=== PATIENT | female | born 1935 | race Caucasian/White ===

== ENCOUNTER → 2016-07-07 | Outpatient (REF) | payer MEDICARE, MEDICAID ==
[~2016-07-07] MED LIST: ACET65SU PR; ADV250INH INH; AMLO5TAB2 PO; ASPI1TAB PO; ATIV1TAB10 PO; ATOR1TAB21 PO; BACT400T PO; BENZ100C5 PO; CLOP75TA2 PO; DULC10SU2 PR; ENEMENE6 PR; EXEM25TA PO; FENOFIBRATE PO; FLUO40CA57 PO; FURO40TA2 PO; IPRASOL4 INH; LASI40TA PO; LEVA1.25 INH; LISI-538 PO; LORA10TA2 PO; MILKSUS PO; MOTR200T40 PO; MUCI600T34 PO; MULTTAB63 PO; MYLASSUD PO; NEXIUM PO; NYST100024 TOP; PANT40TA2 PO; PROA1AER INH; PROT1TAB2 PO; Q PA PO; SENO8.6T10 PO; SIMV40TA2 PO; SYMB16INH INH; VITA50003 PO; ZOCO20TA PO
[2016-07-07 10:39] LABS: CALCIUM LEVEL 10.9 MG/DL (8.8-10.2); CREATININE FOR GFR 1.8 MG/DL (0.55-1.02); GLOMERULAR FILTRATION RATE 28.7 (>32)
[2016-07-07 10:40] LABS: POTASSIUM SERUM 5.7 MEQ/L (3.5-5.1)
== END | disposition home or self-care (01) ==
LOC: SKLAB2 08:00
PROVIDERS: ATTEND Family Medicine
DX: E03.9 Hypothyroidism, unspecified (principal)

== ENCOUNTER → 2016-08-11 | Outpatient (REF) | payer MEDICARE, MEDICAID ==
[~2016-08-11] MED LIST changes: +FLUO40CA PO; -FLUO40CA57 PO; -MOTR200T40 PO; +MOTR200T44 PO
[2016-08-11 08:10] LABS: CALCIUM LEVEL 10.2 MG/DL (8.8-10.2); CREATININE FOR GFR 1.77 MG/DL (0.55-1.02); GLOMERULAR FILTRATION RATE 29.2 (>32); POTASSIUM SERUM 5.1 MEQ/L (3.5-5.1)
== END | disposition home or self-care (01) ==
LOC: SKLAB2 07:00
PROVIDERS: ATTEND Family Medicine
DX: E03.9 Hypothyroidism, unspecified (principal); E78.5 Hyperlipidemia, unspecified

== ENCOUNTER → 2016-09-08 | Outpatient (REF) | payer MEDICARE, MEDICAID ==
[2016-09-08 08:55] LABS: CALCIUM LEVEL 10.3 MG/DL (8.8-10.2); CREATININE FOR GFR 1.77 MG/DL (0.55-1.02); GLOMERULAR FILTRATION RATE 29.2 (>32); POTASSIUM SERUM 4.9 MEQ/L (3.5-5.1)
== END ==
LOC: SKLAB2 07:30
PROVIDERS: ATTEND Family Medicine
DX: E03.9 Hypothyroidism, unspecified (principal)

== ENCOUNTER → 2016-10-06 | Outpatient (REF) | payer MEDICARE, MEDICAID ==
[2016-10-06 09:30] LABS: CALCIUM LEVEL 10.2 MG/DL (8.8-10.2); CREATININE FOR GFR 1.95 MG/DL (0.55-1.02); GLOMERULAR FILTRATION RATE 26.1 (>32); POTASSIUM SERUM 4.8 MEQ/L (3.5-5.1)
== END ==
LOC: SKLAB2 07:00
PROVIDERS: ATTEND Family Medicine
DX: E03.9 Hypothyroidism, unspecified (principal)

== ENCOUNTER → 2016-11-03 | Outpatient (REF) | payer MEDICARE, MEDICAID ==
[2016-11-03 08:55] LABS: CALCIUM LEVEL 10.2 MG/DL (8.8-10.2); CREATININE FOR GFR 1.74 MG/DL (0.55-1.02); GLOMERULAR FILTRATION RATE 29.8 (>32); POTASSIUM SERUM 4.8 MEQ/L (3.5-5.1)
== END ==
LOC: SKLAB2 07:00
PROVIDERS: ATTEND Family Medicine
DX: E78.5 Hyperlipidemia, unspecified (principal)

== ENCOUNTER → 2016-12-08 | Outpatient (REF) | payer MEDICARE, MEDICAID ==
[2016-12-08 08:52] LABS: CALCIUM LEVEL 10.7 MG/DL (8.8-10.2); CREATININE FOR GFR 1.81 MG/DL (0.55-1.02); GLOMERULAR FILTRATION RATE 28.4 (>32)
[2016-12-08 09:01] LABS: POTASSIUM SERUM 5.2 MEQ/L (3.5-5.1)
== END ==
LOC: SKLAB2 07:00
PROVIDERS: ATTEND Family Medicine
DX: E03.9 Hypothyroidism, unspecified (principal)

== ENCOUNTER → 2016-12-23 | Outpatient (REF) | payer MEDICARE, MEDICAID ==
[~2016-12-23] MED LIST changes: +LEXA1TAB2 PO; -MUCI600T34 PO; +MUCI600T37 PO; -NYST100024 TOP; +NYST1POW9 TOP; -PROA1AER INH; +PROAAER10 INH; +VITA1CAP40 PO; -VITA50003 PO
--- NOTE | 2016-12-23 16:13 | REP ---
Clinical: Chest pain. Shortness of breath. Congestion. Comparison: 01/07/2016. Findings: The cardiac silhouette is stable. Hiatal hernia is suggested. Lung dent demonstrate increased interstitial markings which may reflect chronic changes as well as interstitial edema. Left lower lobe atelectasis as well as small layering effusion cannot definitively be excluded. No pneumothorax. Skeletal structures demonstrate osteopenia and degenerative changes. Impression: Acute versus chronic increased interstitial markings. Differential diagnosis includes interstitial edema as well as left lower lobe atelectasis and small layering effusion. Signed by Bonifacio Mendez MD 12/23/2016 04:04 P
== END ==
LOC: SKLAB2 14:59
PROVIDERS: ATTEND Family Medicine
DX: R09.89 Other specified symptoms and signs involving the circulatory and respiratory systems (principal); R91.8 Other nonspecific abnormal finding of lung field; J98.4 Other disorders of lung

== ENCOUNTER → 2016-12-24 | Outpatient (REF) | payer MEDICARE, MEDICAID ==
--- NOTE | 2016-12-24 08:52 | REP ---
Clinical: Congestion. Comparison: 12/23/2016. Findings: Mediastinum and cardiac silhouette are stable. Moderate to large hiatal hernia again noted. Lung dent demonstrate stable chronic interstitial changes. Superimposed interstitial edema as well as trace left basilar atelectasis cannot be excluded. No definite effusion. No pneumothorax. Skeletal structures stable. Impression: Chronic stable changes as described above. Cannot exclude mild interstitial edema. Signed by Bonifacio Mendez MD 12/24/2016 08:44 A
== END ==
LOC: SKLAB2 07:21
PROVIDERS: ATTEND Family Medicine
DX: J98.4 Other disorders of lung (principal); R91.8 Other nonspecific abnormal finding of lung field

== ENCOUNTER → 2017-01-05 | Outpatient (REF) ==
[2017-01-05 10:19] LABS: CALCIUM LEVEL 10.9 MG/DL (8.8-10.2); CREATININE FOR GFR 1.82 MG/DL (0.55-1.02); GLOMERULAR FILTRATION RATE 28.2 (>32)
[2017-01-05 10:22] LABS: POTASSIUM SERUM 5.2 MEQ/L (3.5-5.1)
== END ==
LOC: SKLAB2 08:00
PROVIDERS: ATTEND Family Medicine
DX: E03.9 Hypothyroidism, unspecified (principal)

== ENCOUNTER → 2017-02-09 | Outpatient (REF) | payer MEDICARE, MEDICAID ==
[2017-02-09 10:01] LABS: CALCIUM LEVEL 10.4 MG/DL (8.8-10.2); CREATININE FOR GFR 1.83 MG/DL (0.55-1.02); GLOMERULAR FILTRATION RATE 28.1 (>32)
== END ==
LOC: SKLAB2 07:00
PROVIDERS: ATTEND Family Medicine
DX: E78.5 Hyperlipidemia, unspecified (principal)

== ENCOUNTER → 2017-03-09 | Outpatient (REF) | payer MEDICARE, MEDICAID ==
[2017-03-09 09:00] LABS: CALCIUM LEVEL 10.7 MG/DL (8.8-10.2); CREATININE FOR GFR 1.57 MG/DL (0.55-1.02); GLOMERULAR FILTRATION RATE 33.5 (>32)
== END ==
LOC: SKLAB2 07:30
PROVIDERS: ATTEND Family Medicine
DX: E03.9 Hypothyroidism, unspecified (principal)

== ENCOUNTER 2017-03-23 17:12 | Emergency (ER) | payer MEDICARE, MEDICAID ==
[~2017-03-23] VITALS: Ht 170.2 cm; Wt 98.2 kg
[~2017-03-23 17:12] MED LIST changes: -LEXA1TAB2 PO
[2017-03-23] MEDS ORDERED: MORPHINE 4 MG/ML 1ML SYRINGE IV PRN (17:30)
[2017-03-23] MEDS ORDERED: ONDANSETRON 4MG/2ML VIAL (J2405) IV ONE (17:30)
[2017-03-23 17:56] LABS: MEAN CORPUSCULAR HEMOGLOBIN 27.6 pg (27.0-33.0); MEAN CORPUSCULAR HGB CONC 31.4 g/dl (32.0-36.5); MEAN CORPUSCULAR VOLUME 87.8 fl (80.0-96.0); RED CELL DISTRIBUTION WIDTH 15.8 % (11.5-14.5); WHITE BLOOD COUNT 11.8 10^3/uL (4.0-10.0)
[2017-03-23 18:06] LABS: INR 0.92
--- NOTE | 2017-03-23 18:12 | REP ---
CT Head without contrast HISTORY: Fall COMPARISON: 02/24/2016 Areas of decreased attenuation are present in the left frontal temporal and parietal lobes. There is dilatation of the overlying cortical sulci. These represent old infarctions. Areas of decreased attenuation are present in the periventricular and subcortical white matter. This represents small-vessel ischemic disease. There is no intraparenchymal hemorrhage mass or midline shift. The ventricular system and cortical sulci as well as subarachnoid space in the posterior fossa are dilated consistent with mild volume loss. There is no extra cerebral collection. There is no fracture. The visualized sinuses are clear. IMPRESSION: 1. 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 2. Small vessel ischemic disease. 3. Mild volume loss. Signed by Prateek Kasper MD 03/23/2017 06:03 P
[2017-03-23 18:17] LABS: ALBUMIN 3.3 GM/DL (3.2-5.2); ALBUMIN/GLOBULIN RATIO 0.97 (1.00-1.93); ALKALINE PHOSPHATASE 77 U/L (45-117); ALT/SGPT 20 U/L (12-78); ANION GAP 10 MEQ/L (8-16); AST/SGOT 9 U/L (15-37); BILIRUBIN,DIRECT < 0.1 MG/DL (0.0-0.2); BILIRUBIN,TOTAL 0.2 MG/DL (0.2-1.0); BLOOD UREA NITROGEN 47 MG/DL (7-18); CALCIUM LEVEL 9.6 MG/DL (8.8-10.2); CARBON DIOXIDE LEVEL 20 MEQ/L (21-32); CHLORIDE LEVEL 110 MEQ/L (98-107); CREATININE FOR GFR 1.64 MG/DL (0.55-1.02); GLOMERULAR FILTRATION RATE 31.9 (>32); GLUCOSE, FASTING 102 MG/DL (83-110); POTASSIUM SERUM 5.1 MEQ/L (3.5-5.1); SODIUM LEVEL 140 MEQ/L (136-145); TOTAL PROTEIN 6.7 GM/DL (6.4-8.2)
[2017-03-23] MEDS ORDERED: ADV250INH INH (18:18)
[2017-03-23] MEDS ORDERED: LEXA1TAB2 PO (18:18)
--- NOTE | 2017-03-23 18:18 | ECGEPIP ---
Stationary ECG Study [facility] - ED Test Date: 2017-03-23 Pat Name: DAVID VILA Department: Room: - Gender: F Clinical Implementation Specialist: tosin : 1935 Requested By: MAGDI MEADOWS Order Number: [id number] Reading MD: Colin Whalen Measurements Intervals [place] Rate: 70 P: -63 CO: 176 QRS: -24 QRSD: 74 T: 51 QT: 368 QTc: 399 Interpretive Statements SINUS RHYTHM WITH FIRST DEGREE AV BLOCK Electronically Signed On 03-23-2017 18:18:17 EDT by Colin Whalen
--- NOTE | 2017-03-23 18:58 | REP ---
Chest one-view HISTORY: Fall Comparison: 12/24/2016 A minimal increase in interstitial markings is present in the lungs consistent with chronic interstitial change. Increased density is present in the left lower lobe consistent with atelectasis or infiltrate. The cardiac silhouette is enlarged. The pulmonary vasculature is normal in appearance. A hiatal hernia is present. The pulmonary vasculature is normal in appearance. Impression: 1. Chronic interstitial change. 2. Left lower lobe atelectasis or infiltrate. 3. Cardiomegaly. 4. Hiatal hernia. Signed by Prateek Kasper MD 03/23/2017 06:50 P
[2017-03-23 19:02] VITALS: BP 132/63
--- NOTE | 2017-03-24 09:19 | ED PDOC ---
Post-Departure Follow-Up radiology report faxed to Pennie Carl MD Mar 24, 2017 09:19
--- NOTE | 2017-03-24 09:24 | REP ---
LEFT HIP, AP PELVIS, THREE VIEWS: HISTORY: Fall. There is no acute fracture or dislocation. There is narrowing of the joint spaces. The bony structure is osteopenic. IMPRESSION: There is no acute fracture or dislocation. Signed by Prateek Kasper MD 03/24/2017 09:33 A
== END 2017-03-23 19:07 | disposition home or self-care (01) ==
LOC: EDBD 17:12 → M ED 17:12
DX: S70.01XA Contusion of right hip, initial encounter (principal); W19.XXXA Unspecified fall, initial encounter; Y92.129 Unspecified place in nursing home as the place of occurrence of the external cause; Y93.89 Activity, other specified; Y99.8 Other external cause status; J44.9 Chronic obstructive pulmonary disease, unspecified; E11.9 Type 2 diabetes mellitus without complications; I51.9 Heart disease, unspecified; C64.9 Malignant neoplasm of unspecified kidney, except renal pelvis; Z79.899 Other long term (current) drug therapy; Z79.51 Long term (current) use of inhaled steroids; Z79.82 Long term (current) use of aspirin; Z88.0 Allergy status to penicillin; Z88.8 Allergy status to other drugs, medicaments and biological substances; Z86.73 Personal history of transient ischemic attack (TIA), and cerebral infarction without residual deficits
CPT/HCPCS: 70450; 71010; 73502; 80048; 80076; 85027; 85610; 93005; 96374; 96375; 99284; J2405

== ENCOUNTER → 2017-03-26 | Outpatient (REF) | payer MEDICARE, MEDICAID ==
[~2017-03-26] MED LIST changes: +LEXA1TAB2 PO
--- NOTE | 2017-03-26 15:56 | REP ---
LEFT FEMUR, FOUR VIEWS: HISTORY: Leg pain. There is no acute fracture or dislocation. There is narrowing of the hip and knee joint spaces. The bony structures are osteopenic. IMPRESSION: There is no acute fracture or dislocation. Signed by Prateek Kasper MD 03/26/2017 04:04 P
--- NOTE | 2017-03-26 15:57 | REP ---
PELVIS, ONE VIEWS: HISTORY: Fall. There is no acute fracture or dislocation. There is narrowing of the joint spaces with associated sclerosis. The bony structure is osteopenic. IMPRESSION:There is no acute fracture or dislocation. Signed by Prateek Kasper MD 03/26/2017 04:04 P
== END ==
LOC: SKLAB2 14:05
PROVIDERS: ATTEND Family Medicine
DX: M79.605 Pain in left leg (principal)

== ENCOUNTER → 2017-04-06 | Outpatient (REF) | payer MEDICARE, MEDICAID ==
[2017-04-06 09:48] LABS: CREATININE FOR GFR 1.81 MG/DL (0.55-1.02); GLOMERULAR FILTRATION RATE 28.4 (>32)
[2017-04-06 09:55] LABS: POTASSIUM SERUM 5.6 MEQ/L (3.5-5.1)
== END ==
LOC: SKLAB2 07:30
PROVIDERS: ATTEND Family Medicine
DX: E03.9 Hypothyroidism, unspecified (principal)

== ENCOUNTER → 2017-04-07 | Outpatient (REF) | payer MEDICARE, MEDICAID ==
[2017-04-07 09:56] LABS: CALCIUM LEVEL 11.2 MG/DL (8.8-10.2); CREATININE FOR GFR 2.04 MG/DL (0.55-1.02); GLOMERULAR FILTRATION RATE 24.8 (>32)
[2017-04-07 09:58] LABS: POTASSIUM SERUM 5.6 MEQ/L (3.5-5.1)
== END ==
LOC: SKLAB2 07:30
PROVIDERS: ATTEND Family Medicine
DX: E87.5 Hyperkalemia (principal)

== ENCOUNTER → 2017-04-08 | Outpatient (REF) | payer MEDICARE, MEDICAID ==
[2017-04-08 08:35] LABS: ALBUMIN 3.4 GM/DL (3.2-5.2); CALCIUM LEVEL 11.2 MG/DL (8.8-10.2); CREATININE FOR GFR 1.74 MG/DL (0.55-1.02); GLOMERULAR FILTRATION RATE 29.7 (>32); PHOSPHORUS LEVEL 3.6 MG/DL (2.5-4.9)
[2017-04-08 08:51] LABS: POTASSIUM SERUM 5.2 MEQ/L (3.5-5.1)
== END ==
LOC: SKLAB2 11:36
PROVIDERS: ATTEND Family Medicine
DX: N18.9 Chronic kidney disease, unspecified (principal)

== ENCOUNTER → 2017-04-10 | Outpatient (REF) | payer MEDICARE, MEDICAID ==
[2017-04-10 08:30] LABS: CALCIUM LEVEL 10.7 MG/DL (8.8-10.2); CREATININE FOR GFR 1.59 MG/DL (0.55-1.02)
[2017-04-10 08:32] LABS: POTASSIUM SERUM 5.5 MEQ/L (3.5-5.1)
== END ==
LOC: SKLAB2 07:02
PROVIDERS: ATTEND Family Medicine
DX: N18.9 Chronic kidney disease, unspecified (principal)

== ENCOUNTER → 2017-04-14 | Outpatient (REF) | payer MEDICARE, MEDICAID ==
[2017-04-14 08:46] LABS: CALCIUM LEVEL 10.6 MG/DL (8.8-10.2); CREATININE FOR GFR 1.63 MG/DL (0.55-1.02); GLOMERULAR FILTRATION RATE 32.1 (>32)
== END ==
LOC: SKLAB2 10:22
PROVIDERS: ATTEND Family Medicine
DX: I50.9 Heart failure, unspecified (principal)

== ENCOUNTER → 2017-05-11 | Outpatient (REF) | payer MEDICARE, MEDICAID ==
[2017-05-11 10:13] LABS: CALCIUM LEVEL 10.8 MG/DL (8.8-10.2); CREATININE FOR GFR 1.47 MG/DL (0.55-1.02); GLOMERULAR FILTRATION RATE 36.1 (>32)
== END ==
LOC: SKLAB2 07:30
PROVIDERS: ATTEND Family Medicine
DX: I10 Essential (primary) hypertension (principal)

== ENCOUNTER → 2017-05-18 | Outpatient (REF) | payer MEDICARE, MEDICAID ==
[2017-05-18 13:37] LABS: CALCIUM LEVEL 10.7 MG/DL (8.8-10.2); CREATININE FOR GFR 1.61 MG/DL (0.55-1.02); GLOMERULAR FILTRATION RATE 32.5 (>32); POTASSIUM SERUM 4.9 MEQ/L (3.5-5.1)
== END ==
LOC: SKLAB2 12:00
PROVIDERS: ATTEND Family Medicine
DX: I10 Essential (primary) hypertension (principal)

== ENCOUNTER → 2017-06-08 | Outpatient (REF) | payer MEDICARE, MEDICAID ==
[2017-06-08 09:11] LABS: CREATININE FOR GFR 1.29 MG/DL (0.55-1.02); POTASSIUM SERUM 4.8 MEQ/L (3.5-5.1)
== END ==
LOC: SKLAB2 07:30
PROVIDERS: ATTEND Family Medicine
DX: I10 Essential (primary) hypertension (principal)

== ENCOUNTER → 2017-07-06 | Outpatient (REF) | payer MEDICARE, MEDICAID ==
[2017-07-06 09:04] LABS: ANION GAP 8 MEQ/L (8-16); BLOOD UREA NITROGEN 27 MG/DL (7-18); CALCIUM LEVEL 10.6 MG/DL (8.8-10.2); CARBON DIOXIDE LEVEL 27 MEQ/L (21-32); CHLORIDE LEVEL 110 MEQ/L (98-107); CREATININE FOR GFR 1.26 MG/DL (0.55-1.02); GLOMERULAR FILTRATION RATE 43.2 (>32); GLUCOSE, FASTING 127 MG/DL (83-110); POTASSIUM SERUM 4.7 MEQ/L (3.5-5.1); SODIUM LEVEL 145 MEQ/L (136-145)
== END ==
LOC: SKLAB2 07:30
DX: E03.9 Hypothyroidism, unspecified (principal)
CPT/HCPCS: 36415

== ENCOUNTER → 2017-07-15 | Outpatient (REF) | payer MEDICARE, MEDICAID ==
[2017-07-15 02:02] LABS: APPEARANCE, URINE CLEAR (CLEAR); BACTERIA, URINE AUTO 1+ (NEGATIVE); BILIRUBIN, URINE AUTO NEGATIVE (NEGATIVE); BLOOD, URINE BLOOD 1+ (NEGATIVE); COLOR, URINE STRAW (YELLOW); GLUCOSE, URINE (UA) AUTO NEGATIVE (NEGATIVE); KETONE, URINE AUTO NEGATIVE (NEGATIVE); LEUKOCYTE ESTERASE, URINE AUTO 1+ (NEGATIVE); NITRITE, URINE AUTO NEGATIVE (NEGATIVE); PROTEIN, URINE AUTO NEGATIVE (NEGATIVE); RBC, URINE AUTO 1 /HPF (0-3); SPECIFIC GRAVITY URINE AUTO 1.005 (1.002-1.035); SQUAMOUS EPITHELIAL CELL UR AU 0 /HPF (0-6); UROBILINOGEN, URINE AUTO 0.2 mg/dL (0.0-2.0); WBC, URINE AUTO 6 /HPF (0-3)
== END ==
LOC: SKLAB2 01:33
DX: R30.0 Dysuria (principal)
CPT/HCPCS: 81001

== ENCOUNTER → 2017-08-01 | Outpatient (REF) | payer MEDICARE, MEDICAID | LOC: M RAD 08:00 | DX: M85.80 Other specified disorders of bone density and structure, unspecified site (principal) | CPT/HCPCS: 73630 ==

== ENCOUNTER → 2017-08-10 | Outpatient (REF) | payer MEDICARE, MEDICAID ==
[2017-08-10 09:34] LABS: ANION GAP 8 MEQ/L (8-16); BLOOD UREA NITROGEN 31 MG/DL (7-18); CALCIUM LEVEL 10.9 MG/DL (8.8-10.2); CARBON DIOXIDE LEVEL 28 MEQ/L (21-32); CHLORIDE LEVEL 107 MEQ/L (98-107); CREATININE FOR GFR 1.36 MG/DL (0.55-1.30); GLOMERULAR FILTRATION RATE 39.5 (>32); GLUCOSE, FASTING 134 MG/DL (70-100); POTASSIUM SERUM 4.6 MEQ/L (3.5-5.1); SODIUM LEVEL 143 MEQ/L (136-145)
== END ==
LOC: SKLAB2 07:30
DX: E03.9 Hypothyroidism, unspecified (principal)
CPT/HCPCS: 36415

== ENCOUNTER → 2017-09-07 | Outpatient (REF) | payer MEDICARE, MEDICAID ==
[2017-09-07 08:52] LABS: ANION GAP 9 MEQ/L (8-16); BLOOD UREA NITROGEN 26 MG/DL (7-18); CALCIUM LEVEL 10.6 MG/DL (8.8-10.2); CARBON DIOXIDE LEVEL 26 MEQ/L (21-32); CHLORIDE LEVEL 107 MEQ/L (98-107); GLOMERULAR FILTRATION RATE 41.6 (>32); GLUCOSE, FASTING 172 MG/DL (70-100); POTASSIUM SERUM 4.3 MEQ/L (3.5-5.1); SODIUM LEVEL 142 MEQ/L (136-145)
== END ==
LOC: SKLAB2 07:00
DX: I10 Essential (primary) hypertension (principal)
CPT/HCPCS: 36415

== ENCOUNTER → 2017-12-25 | Outpatient (REF) | payer MEDICARE, MEDICAID ==
[2017-12-25 14:22] LABS: HEMATOCRIT 45.7 % (36.0-47.0); HEMOGLOBIN 14.1 g/dl (12.0-15.5); MEAN CORPUSCULAR HEMOGLOBIN 27.1 pg (27.0-33.0); MEAN CORPUSCULAR HGB CONC 30.9 g/dl (32.0-36.5); MEAN CORPUSCULAR VOLUME 87.7 fl (80.0-96.0); PLATELET COUNT, AUTOMATED 271 10^3/uL (150-450); RED BLOOD COUNT 5.21 10^6/uL (4.00-5.40); RED CELL DISTRIBUTION WIDTH 15.3 % (11.5-14.5)
[2017-12-25 14:39] LABS: ANION GAP 9 MEQ/L (8-16); BLOOD UREA NITROGEN 24 MG/DL (7-18); CALCIUM LEVEL 10.6 MG/DL (8.8-10.2); CARBON DIOXIDE LEVEL 28 MEQ/L (21-32); CHLORIDE LEVEL 106 MEQ/L (98-107); CREATININE FOR GFR 1.24 MG/DL (0.55-1.30); GLOMERULAR FILTRATION RATE 43.9 (>32); GLUCOSE, FASTING 173 MG/DL (70-100); NT-PRO BNP 197 PG/ML (<450); POTASSIUM SERUM 4.2 MEQ/L (3.5-5.1); SODIUM LEVEL 143 MEQ/L (136-145); TROPONIN I < 0.02 NG/ML (< 0.10)
== END ==
LOC: SKLAB2 07:00
DX: R60.9 Edema, unspecified (principal); E87.5 Hyperkalemia; I50.9 Heart failure, unspecified; I63.9 Cerebral infarction, unspecified; N18.3 Chronic kidney disease, stage 3 (moderate); G20 Parkinson's disease; E11.9 Type 2 diabetes mellitus without complications
CPT/HCPCS: 71045

== ENCOUNTER → 2018-01-01 | Outpatient (REF) | payer MEDICARE, MEDICAID ==
[2018-01-01 13:23] LABS: ANION GAP 3 MEQ/L (8-16); BLOOD UREA NITROGEN 32 MG/DL (7-18); CALCIUM LEVEL 11.1 MG/DL (8.8-10.2); CARBON DIOXIDE LEVEL 35 MEQ/L (21-32); CHLORIDE LEVEL 103 MEQ/L (98-107); CREATININE FOR GFR 1.29 MG/DL (0.55-1.30); GLOMERULAR FILTRATION RATE 41.9 (>32); GLUCOSE, FASTING 129 MG/DL (70-100); POTASSIUM SERUM 4.5 MEQ/L (3.5-5.1); SODIUM LEVEL 141 MEQ/L (136-145)
== END ==
LOC: SKLAB2 14:51
DX: R60.9 Edema, unspecified (principal)
CPT/HCPCS: 80048

== ENCOUNTER → 2018-01-04 | Outpatient (REF) | payer MEDICARE, MEDICAID ==
[2018-01-04 08:51] LABS: BASO # 0.1 10^3/uL (0.0-0.2); BASO % 0.5 % (0.0-1.0); EOS # 0.4 10^3/uL (0.0-0.50); EOS % 3.1 % (0.0-3.0); HEMATOCRIT 46.3 % (36.0-47.0); HEMOGLOBIN 14.1 g/dl (12.0-15.5); IMMATURE GRANULOCYTE % 0.3 % (0-3.0); LYMPH # 1.4 10^3/uL (1.5-4.5); LYMPH % 12.1 % (24.0-44.0); MEAN CORPUSCULAR HEMOGLOBIN 27.1 pg (27.0-33.0); MEAN CORPUSCULAR HGB CONC 30.5 g/dl (32.0-36.5); MEAN CORPUSCULAR VOLUME 88.9 fl (80.0-96.0); MONO % 8.9 % (0.0-5.0); NEUTROPHILS # 8.8 10^3/uL (1.8-7.7); NEUTROPHILS % 75.1 % (36.0-66.0); PLATELET COUNT, AUTOMATED 300 10^3/uL (150-450); RED BLOOD COUNT 5.21 10^6/uL (4.00-5.40); RED CELL DISTRIBUTION WIDTH 15.1 % (11.5-14.5); WHITE BLOOD COUNT 11.7 10^3/uL (4.0-10.0)
[2018-01-04 09:28] LABS: ESTIMATED AVERAGE GLUCOSE 166 MG/DL (60-110); HEMOGLOBIN A1c 7.4 %
[2018-01-04 10:24] LABS: ALBUMIN 3.2 GM/DL (3.2-5.2); ANION GAP 10 MEQ/L (8-16); BLOOD UREA NITROGEN 32 MG/DL (7-18); CALCIUM LEVEL 11.3 MG/DL (8.8-10.2); CARBON DIOXIDE LEVEL 28 MEQ/L (21-32); CHLORIDE LEVEL 105 MEQ/L (98-107); CREATININE FOR GFR 1.35 MG/DL (0.55-1.30); GLOMERULAR FILTRATION RATE 39.8 (>32); GLUCOSE, FASTING 149 MG/DL (70-100); PHOSPHORUS LEVEL 3.1 MG/DL (2.5-4.9); POTASSIUM SERUM 4.7 MEQ/L (3.5-5.1); SODIUM LEVEL 143 MEQ/L (136-145)
[2018-01-04 10:57] LABS: PTH INTACT 144.1 PG/ML (18.5-88.0)
== END ==
LOC: SKLAB2 07:15
DX: E03.9 Hypothyroidism, unspecified (principal); Z79.899 Other long term (current) drug therapy
CPT/HCPCS: 80069

== ENCOUNTER → 2018-01-18 | Outpatient (REF) | payer MEDICARE, MEDICAID ==
[2018-01-18 08:45] LABS: CALCIUM LEVEL 10.9 MG/DL (8.8-10.2)
[2018-01-18 09:54] LABS: TOTAL 25(OH) VITAMIN D 56.5 NG/ML (30.0-100.0)
== END ==
LOC: SKLAB2 07:00
DX: E55.9 Vitamin D deficiency, unspecified (principal)
CPT/HCPCS: 82310

== ENCOUNTER → 2018-04-05 | Outpatient (REF) | payer MEDICARE, MEDICAID ==
[2018-04-05 09:18] LABS: ALBUMIN 3.5 GM/DL (3.2-5.2); ANION GAP 11 MEQ/L (8-16); BLOOD UREA NITROGEN 27 MG/DL (7-18); CALCIUM LEVEL 10.8 MG/DL (8.8-10.2); CARBON DIOXIDE LEVEL 29 MEQ/L (21-32); CHLORIDE LEVEL 103 MEQ/L (98-107); CREATININE FOR GFR 1.38 MG/DL (0.55-1.30); GLOMERULAR FILTRATION RATE 38.8 (>32); GLUCOSE, FASTING 166 MG/DL (70-100); PHOSPHORUS LEVEL 3.3 MG/DL (2.5-4.9); POTASSIUM SERUM 4.5 MEQ/L (3.5-5.1); SODIUM LEVEL 143 MEQ/L (136-145)
== END ==
LOC: SKLAB2 07:00
DX: E03.9 Hypothyroidism, unspecified (principal)
CPT/HCPCS: 80069

== ENCOUNTER → 2018-07-12 | Outpatient (REF) | payer MEDICARE, MEDICAID ==
[~2018-07-12] MED LIST changes: -AMLO5TAB2 PO; +AMLO5TAB6 PO; +BENZ-18 PO; -BENZ100C5 PO; +IPRA0.00 INH; -IPRASOL4 INH; -LASI40TA PO; +LASI40TA9 PO; +LORA-243 PO; -LORA10TA2 PO; +MILK120011 PO; -MILKSUS PO; -PANT40TA2 PO; +PANT40TA3 PO; -VITA1CAP40 PO; +VITA50005 PO
[2018-07-12 08:11] LABS: BASO % 0.5 % (0.0-1.0); EOS # 0.3 10^3/uL (0.0-0.50); EOS % 4.1 % (0.0-3.0); HEMATOCRIT 47.1 % (36.0-47.0); HEMOGLOBIN 14.4 g/dl (12.0-15.5); LYMPH # 1.5 10^3/uL (1.5-4.5); MEAN CORPUSCULAR HEMOGLOBIN 26.8 pg (27.0-33.0); MEAN CORPUSCULAR HGB CONC 30.6 g/dl (32.0-36.5); MEAN CORPUSCULAR VOLUME 87.5 fl (80.0-96.0); MONO # 0.8 10^3/uL (0.0-0.8); MONO % 9.8 % (0.0-5.0); NEUTROPHILS # 5.1 10^3/uL (1.8-7.7); NEUTROPHILS % 66.3 % (36.0-66.0); PLATELET COUNT, AUTOMATED 287 10^3/uL (150-450); RED BLOOD COUNT 5.38 10^6/uL (4.00-5.40); WHITE BLOOD COUNT 7.7 10^3/uL (4.0-10.0)
[2018-07-12 08:41] LABS: ALBUMIN 3.3 GM/DL (3.2-5.2); CALCIUM LEVEL 10.7 MG/DL (8.8-10.2); CREATININE FOR GFR 1.25 MG/DL (0.55-1.30); GLOMERULAR FILTRATION RATE 43.5 (>32); PHOSPHORUS LEVEL 2.9 MG/DL (2.5-4.9); POTASSIUM SERUM 4.1 MEQ/L (3.5-5.1)
[2018-07-12 08:58] LABS: HEMOGLOBIN A1c 8.3 %
[2018-07-12 10:37] LABS: PTH INTACT 173.1 PG/ML (18.5-88.0)
== END ==
LOC: SKLAB2 07:00
PROVIDERS: ATTEND Family Medicine
DX: E03.9 Hypothyroidism, unspecified (principal); Z79.899 Other long term (current) drug therapy

== ENCOUNTER → 2018-10-04 | Outpatient (REF) | payer MEDICARE, MEDICAID ==
[~2018-10-04] MED LIST changes: -ASPI1TAB PO; +ASPI81TA26 PO
[2018-10-04 08:03] LABS: ALBUMIN 3.2 GM/DL (3.2-5.2); CALCIUM LEVEL 10.9 MG/DL (8.8-10.2); CHOLESTEROL RISK RATIO 3.021 (<5); CREATININE FOR GFR 1.22 MG/DL (0.55-1.30); GLOMERULAR FILTRATION RATE 44.7 (>32); PHOSPHORUS LEVEL 2.9 MG/DL (2.5-4.9); POTASSIUM SERUM 4.2 MEQ/L (3.5-5.1)
[2018-10-04 09:37] LABS: HEMOGLOBIN A1c 8.3 %
== END ==
LOC: SKLAB2 07:30
PROVIDERS: ATTEND Family Medicine
DX: E30.9 Disorder of puberty, unspecified (principal); Z79.899 Other long term (current) drug therapy

== ENCOUNTER → 2018-10-15 | Outpatient (REF) | payer MEDICARE, MEDICAID ==
--- NOTE | 2018-10-15 15:38 | REP ---
Portable chest x-ray: Single view. History: COPD and cough. Comparison chest x-ray: December 25, 2017. Findings: Cardiomegaly is observed. There is evidence of a large hiatal hernia behind the heart. Pulmonary vasculature is cephalized similar to prior study. No pleural effusion is seen. No definite infiltrate is noted. There are degenerative changes in the shoulders. Impression: Large hiatal hernia. Cardiomegaly. Pulmonary vascular cephalization. No acute abnormality. Electronically Signed by Vasu Vidales MD 10/15/2018 04:23 P
== END ==
LOC: SKLAB2 11:40
PROVIDERS: ATTEND Family Medicine
DX: R05 Cough (principal); J44.9 Chronic obstructive pulmonary disease, unspecified

== ENCOUNTER → 2019-01-03 | Outpatient (REF) | payer MEDICARE, MEDICAID ==
[2019-01-03 07:33] LABS: BASO # 0.1 10^3/uL (0.0-0.2); BASO % 0.6 % (0.0-1.0); EOS # 0.3 10^3/uL (0.0-0.50); EOS % 3.9 % (0.0-3.0); HEMATOCRIT 51.9 % (36.0-47.0); HEMOGLOBIN 15.8 g/dl (12.0-15.5); LYMPH # 1.4 10^3/uL (1.5-4.5); LYMPH % 16.2 % (24.0-44.0); MEAN CORPUSCULAR HEMOGLOBIN 27.2 pg (27.0-33.0); MEAN CORPUSCULAR HGB CONC 30.4 g/dl (32.0-36.5); MEAN CORPUSCULAR VOLUME 89.5 fl (80.0-96.0); MONO # 0.8 10^3/uL (0.0-0.8); NEUTROPHILS # 5.8 10^3/uL (1.8-7.7); NEUTROPHILS % 68.9 % (36.0-66.0); PLATELET COUNT, AUTOMATED 256 10^3/uL (150-450); WHITE BLOOD COUNT 8.4 10^3/uL (4.0-10.0)
[2019-01-03 08:13] LABS: ALBUMIN 3.2 GM/DL (3.2-5.2); CALCIUM LEVEL 11.2 MG/DL (8.8-10.2); CREATININE FOR GFR 1.08 MG/DL (0.55-1.30); GLOMERULAR FILTRATION RATE 51.3 (>32); PHOSPHORUS LEVEL 3.1 MG/DL (2.5-4.9); POTASSIUM SERUM 4.4 MEQ/L (3.5-5.1)
[2019-01-03 10:26] LABS: PTH INTACT 185.5 PG/ML (18.5-88.0)
[2019-01-03 10:30] LABS: HEMOGLOBIN A1c 7.8 %
== END ==
LOC: SKLAB2 07:00
PROVIDERS: ATTEND Family Medicine
DX: E03.9 Hypothyroidism, unspecified (principal); E11.9 Type 2 diabetes mellitus without complications; Z79.899 Other long term (current) drug therapy

== ENCOUNTER → 2019-01-26 | Outpatient (REF) | payer MEDICARE, MEDICAID ==
--- NOTE | 2019-01-26 14:12 | REP ---
RIGHT ANKLE: Two views. HISTORY: Pain and swelling. FINDINGS: AP and lateral views of the right ankle demonstrate diffuse soft tissue swelling of the distal calf and in the periarticular soft tissues laterally as well as medially. There is moderate diffuse osteoporosis. Ankle mortise is intact. No fracture is seen. No focal bony destructive lesion. IMPRESSION: Diffuse moderate swelling of the soft tissues. Osteoporosis. No acute bony abnormality. Electronically Signed by Vasu Vidales MD 01/26/2019 02:23 P
--- NOTE | 2019-01-26 14:13 | REP ---
RIGHT FOOT SERIES: Two views. HISTORY: Pain and swelling. COMPARISON STUDY: August 01, 2017. FINDINGS: AP and lateral views of the right foot show moderate diffuse soft tissue swelling about the ankle and extending through the dorsal soft tissues of the midfoot and forefoot. There is diffuse osteoporosis. There is a tiny plantar calcaneal spur on the lateral radiograph. There is no evidence of fracture, bony destructive lesion or soft tissue gas. There is a moderate hallux valgus, which is essentially unchanged from the August 18, 2017 study. IMPRESSION: Osteoporosis. No acute bony abnormality. Diffuse soft tissue swelling of the midfoot and forefoot. Small plantar heel spur. Electronically Signed by Vasu Vidales MD 01/26/2019 02:23 P
== END ==
LOC: SKLAB2 13:06
PROVIDERS: ATTEND Family Medicine
DX: M25.271 Flail joint, right ankle and foot (principal); R22.40 Localized swelling, mass and lump, unspecified lower limb; M81.0 Age-related osteoporosis without current pathological fracture

== ENCOUNTER → 2019-01-27 | Outpatient (REF) | payer MEDICARE, MEDICAID ==
[2019-01-27 08:35] LABS: HEMOGLOBIN 14.9 g/dl (12.0-15.5); MEAN CORPUSCULAR HEMOGLOBIN 27.1 pg (27.0-33.0); MEAN CORPUSCULAR VOLUME 87.4 fl (80.0-96.0); PLATELET COUNT, AUTOMATED 297 10^3/uL (150-450); RED BLOOD COUNT 5.49 10^6/uL (4.00-5.40); WHITE BLOOD COUNT 7.7 10^3/uL (4.0-10.0)
[2019-01-27 09:17] LABS: ERYTHROCYTE SEDIMENTATION RATE 6 mm/hr (0-42)
== END ==
LOC: SKLAB2 07:00
PROVIDERS: ATTEND Family Medicine
DX: M79.671 Pain in right foot (principal); R22.41 Localized swelling, mass and lump, right lower limb

== ENCOUNTER → 2019-04-11 | Outpatient (REF) | payer MEDICARE, MEDICAID ==
[2019-04-11 08:16] LABS: ALBUMIN 3.1 GM/DL (3.2-5.2); CALCIUM LEVEL 10.9 MG/DL (8.8-10.2); CREATININE FOR GFR 1.29 MG/DL (0.55-1.30); GLOMERULAR FILTRATION RATE 41.8 (>32); PHOSPHORUS LEVEL 2.8 MG/DL (2.5-4.9); POTASSIUM SERUM 4.3 MEQ/L (3.5-5.1)
== END ==
LOC: SKLAB2 07:00
PROVIDERS: ATTEND Family Medicine
DX: N18.9 Chronic kidney disease, unspecified (principal)

== ENCOUNTER → 2019-04-25 | Outpatient (REF) | payer MEDICARE, MEDICAID | LOC: SKLAB2 07:00 | PROVIDERS: ATTEND Family Medicine | DX: E83.51 Hypocalcemia (principal); Z79.899 Other long term (current) drug therapy ==

== ENCOUNTER → 2019-05-09 | Outpatient (REF) | payer MEDICARE, MEDICAID ==
[2019-05-09 12:32] LABS: BLOOD UREA NITROGEN 20 MG/DL (7-18); CALCIUM LEVEL 11.4 MG/DL (8.8-10.2); CARBON DIOXIDE LEVEL 30 MEQ/L (21-32); CHLORIDE LEVEL 101 MEQ/L (98-107); CREATININE FOR GFR 1.39 MG/DL (0.55-1.30); GLOMERULAR FILTRATION RATE 38.4 (>32); GLUCOSE, FASTING 361 MG/DL (70-100); POTASSIUM SERUM 4.3 MEQ/L (3.5-5.1); SODIUM LEVEL 138 MEQ/L (136-145); TOTAL PROTEIN 6.6 GM/DL (6.4-8.2)
[2019-05-10 09:51] LABS: ALBUMIN 3.57 GM/DL (3.29-5.55); ALBUMIN % 54.1 % (55.8-66.1); ALPHA-1-GLOBULIN % 4.6 % (2.9-4.9); ALPHA-2-GLOBULINS 1.08 GM/DL (0.42-0.99); ALPHA-2-GLOBULINS % 16.3 % (7.1-11.8); BETA-1-GLOBULINS 0.49 GM/DL (0.28-0.60); BETA-1-GLOBULINS % 7.4 % (4.7-7.2); BETA-2-GLOBULINS 0.48 GM/DL (0.19-0.55); BETA-2-GLOBULINS % 7.3 % (3.2-6.5); GAMMA GLOBULIN % 10.3 % (11.1-18.8); GAMMA GLOBULINS 0.68 GM/DL (0.65-1.58)
== END ==
LOC: SKLAB2 11:30
PROVIDERS: ATTEND Family Medicine
DX: D64.9 Anemia, unspecified (principal)

== ENCOUNTER → 2019-06-16 | Outpatient (REF) | payer MEDICARE, MEDICAID ==
[~2019-06-16] MED LIST changes: -SIMV40TA2 PO; +SIMV40TA20 PO
[2019-06-16 09:22] LABS: HEMOGLOBIN A1c 11.4 %
== END ==
LOC: SKLAB2 07:00
PROVIDERS: ATTEND Family Medicine
DX: E11.9 Type 2 diabetes mellitus without complications (principal)

== ENCOUNTER → 2019-07-11 | Outpatient (REF) | payer MEDICARE, MEDICAID ==
[2019-07-11 08:20] LABS: BASO # 0.1 10^3/uL (0.0-0.2); BASO % 0.5 % (0.0-1.0); EOS # 0.4 10^3/uL (0.0-0.5); EOS % 4.1 % (0.0-3.0); HEMATOCRIT 50.7 % (36.0-47.0); HEMOGLOBIN 15.1 g/dl (12.0-15.5); LYMPH # 1.9 10^3/uL (1.5-5.0); LYMPH % 19.3 % (24.0-44.0); MEAN CORPUSCULAR HGB CONC 29.8 g/dl (32.0-36.5); MEAN CORPUSCULAR VOLUME 90.7 fl (80.0-96.0); MONO # 0.9 10^3/uL (0.0-0.8); NEUTROPHILS # 6.5 10^3/uL (1.5-8.5); NEUTROPHILS % 66.5 % (36.0-66.0); PLATELET COUNT, AUTOMATED 122 10^3/uL (150-450); RED BLOOD COUNT 5.59 10^6/uL (4.00-5.40); WHITE BLOOD COUNT 9.8 10^3/uL (4.0-10.0)
[2019-07-11 08:29] LABS: ALBUMIN 3.1 GM/DL (3.2-5.2); CALCIUM LEVEL 10.6 MG/DL (8.8-10.2); CREATININE FOR GFR 1.05 MG/DL (0.55-1.30); PHOSPHORUS LEVEL 2.8 MG/DL (2.5-4.9); POTASSIUM SERUM 4.5 MEQ/L (3.5-5.1)
[2019-07-11 10:12] LABS: HEMOGLOBIN A1c 10.7 %
[2019-07-11 12:55] LABS: PTH INTACT 145.6 PG/ML (18.5-88.0)
== END ==
LOC: SKLAB2 07:30
PROVIDERS: ATTEND Family Medicine
DX: E78.5 Hyperlipidemia, unspecified (principal); E03.9 Hypothyroidism, unspecified; Z79.899 Other long term (current) drug therapy

== ENCOUNTER 2019-08-06 20:30 | Emergency (ER) | payer MEDICARE, MEDICAID ==
[~2019-08-06] VITALS: Ht 160 cm; Wt 92.3 kg
[~2019-08-06 20:30] MED LIST changes: -ACET1TAB55 PO; -ALB2.5NEB INH; -ALLO100T PO; -BREO1INH INH; -FURO20TA2 PO; -GLIP2.5T6 PO; -HYDR1CRE9 TOP; -MILKSUS3 PO; -PANT20TA51 PO; -SIMV20TA22 PO; -[UNRECOGNIZED DRUG - CODE] EX
[2019-08-06 20:34] VITALS: BP 180/84
[2019-08-06] MEDS ORDERED: MILKSUS3 PO (21:16)
[2019-08-06] MEDS ORDERED: PANT20TA51 PO (21:16)
[2019-08-06] MEDS ORDERED: FURO20TA2 PO (21:16)
[2019-08-06] MEDS ORDERED: GLIP2.5T6 PO (21:21)
[2019-08-06] MEDS ORDERED: SIMV20TA22 PO (21:21)
[2019-08-06] MEDS ORDERED: BREO1INH INH (21:21)
[2019-08-06] MEDS ORDERED: ACET1TAB55 PO (21:21)
[2019-08-06] MEDS ORDERED: ALLO100T PO (21:21)
[2019-08-06] MEDS ORDERED: ALB2.5NEB INH (21:24)
[2019-08-06] MEDS ORDERED: [UNRECOGNIZED DRUG - CODE] EX (21:27)
[2019-08-06] MEDS ORDERED: HYDR1CRE9 TOP (21:27)
== END 2019-08-06 22:11 | disposition home or self-care (01) ==
LOC: M ED 20:30
DX: S52.502A Unspecified fracture of the lower end of left radius, initial encounter for closed fracture (principal); W19.XXXA Unspecified fall, initial encounter; Y92.128 Other place in nursing home as the place of occurrence of the external cause; M25.512 Pain in left shoulder; M85.80 Other specified disorders of bone density and structure, unspecified site; M25.562 Pain in left knee; M79.622 Pain in left upper arm; E11.9 Type 2 diabetes mellitus without complications; F03.90 Unspecified dementia, unspecified severity, without behavioral disturbance, psychotic disturbance, mood disturbance, and anxiety; E78.5 Hyperlipidemia, unspecified; K21.9 Gastro-esophageal reflux disease without esophagitis; Z79.899 Other long term (current) drug therapy; Z79.84 Long term (current) use of oral hypoglycemic drugs; Z79.82 Long term (current) use of aspirin; Z79.01 Long term (current) use of anticoagulants; Z88.0 Allergy status to penicillin; Z88.1 Allergy status to other antibiotic agents

== ENCOUNTER → 2019-08-06 | Outpatient (REF) | payer MEDICARE, MEDICAID ==
[~2019-08-06] MED LIST changes: +ACET1TAB55 PO; +ALB2.5NEB INH; +ALLO100T PO; +BREO1INH INH; +FURO20TA2 PO; +GLIP2.5T6 PO; +HYDR1CRE9 TOP; +MILKSUS3 PO; +PANT20TA51 PO; +SIMV20TA22 PO; +[UNRECOGNIZED DRUG - CODE] EX
--- NOTE | 2019-08-06 11:44 | REP ---
Clinical: Recent trauma. Fall. Technique: AP and lateral views of the left forearm. Findings: Subtle fracture involving the radial metaphysis cannot be excluded. No further acute fracture dislocation identified. Impression: Possible nondisplaced fracture of the distal radial metaphysis. Electronically Signed by Bonifacio Mendez MD 08/06/2019 11:36 A
--- NOTE | 2019-08-06 11:45 | REP ---
Clinical: Fall. Technique: Neutral and Y views of the left shoulder. Findings: Osteopenia and advanced osteoarthritic changes are appreciated. No obvious acute fracture identified. Impression: Limited by osteopenia and degenerative changes. No obvious acute fracture. Electronically Signed by Bonifacio Mendez MD 08/06/2019 11:37 A
--- NOTE | 2019-08-06 11:46 | REP ---
Show clinical: Trauma. Fall. Technique: AP and lateral views of the left humerus. Findings: Osteopenia and degenerative changes are appreciated. Deformity to the proximal humerus noted an acute injury cannot be excluded. Impression: Osteopenia and degenerative changes. Deformity to the proximal humerus cannot exclude acute injury. Electronically Signed by Bonifacio Mendez MD 08/06/2019 11:38 A
--- NOTE | 2019-08-06 11:47 | REP ---
Clinical: Trauma. Fall. Technique: AP and lateral views of the left knee. Findings: Osteopenia and degenerative changes are appreciated. No obvious acute fracture dislocation. No definite effusion. Impression: Osteopenia and degenerative changes. No obvious acute fracture. Electronically Signed by Bonifacio Mendez MD 08/06/2019 11:39 A
--- NOTE | 2019-08-06 11:49 | REP ---
Clinical: Trauma. Fall. Technique: Frontal view of the chest with four views of the left hemithorax. Findings: Frontal view of the chest demonstrates cardiomegaly. Multiple views of the left hemithorax demonstrates age-related osteopenia and degenerative changes. No obvious acute or displaced left rib fracture identified. Impression: Osteopenia and degenerative changes. No obvious acute/displaced rib fracture identified. Electronically Signed by Bonifacio Mendez MD 08/06/2019 11:40 A
== END ==
LOC: SKLAB2 08:22
PROVIDERS: ATTEND Family Medicine
DX: M25.512 Pain in left shoulder (principal); M85.80 Other specified disorders of bone density and structure, unspecified site; M79.632 Pain in left forearm; M25.562 Pain in left knee; M79.622 Pain in left upper arm; W19.XXXA Unspecified fall, initial encounter

== ENCOUNTER → 2019-09-05 | Outpatient (REF) | payer MEDICARE, MEDICAID ==
[~2019-09-05] MED LIST changes: +ACET1TAB55 PO; +ALB2.5NEB INH; +ALLO100T PO; +BREO1INH INH; +FURO20TA2 PO; +GLIP2.5T6 PO; +HYDR1CRE9 TOP; +MILKSUS3 PO; +PANT20TA51 PO; +SIMV20TA22 PO; +[UNRECOGNIZED DRUG - CODE] EX
[2019-09-05 13:33] LABS: HEMOGLOBIN A1c 8.4 %
== END ==
LOC: SKLAB2 07:00
PROVIDERS: ATTEND Family Medicine
DX: E11.9 Type 2 diabetes mellitus without complications (principal); Z79.899 Other long term (current) drug therapy

== ENCOUNTER → 2019-10-11 | Outpatient (REF) | payer MEDICARE, MEDICAID ==
[2019-10-11 08:20] LABS: ALBUMIN 3.1 GM/DL (3.2-5.2); CALCIUM LEVEL 10.6 MG/DL (8.8-10.2); CHOLESTEROL RISK RATIO 3.282 (<5); CREATININE FOR GFR 1.18 MG/DL (0.55-1.30); GLOMERULAR FILTRATION RATE 46.3 (>32); PHOSPHORUS LEVEL 2.9 MG/DL (2.5-4.9); POTASSIUM SERUM 4.5 MEQ/L (3.5-5.1)
== END ==
LOC: SKLAB2 07:00
PROVIDERS: ATTEND Family Medicine
DX: E78.5 Hyperlipidemia, unspecified (principal)

== ENCOUNTER → 2019-12-06 | Outpatient (REF) | payer MEDICARE, MEDICAID ==
[2019-12-06 09:46] LABS: HEMOGLOBIN A1c 9.5 %
== END ==
LOC: SKLAB2 07:30
PROVIDERS: ATTEND Family Medicine
DX: E11.9 Type 2 diabetes mellitus without complications (principal)

== ENCOUNTER → 2020-01-10 | Outpatient (REF) | payer MEDICARE, MEDICAID ==
[2020-01-10 08:37] LABS: BASO # 0.1 10^3/uL (0.0-0.2); BASO % 0.7 % (0.0-1.0); EOS # 0.3 10^3/uL (0.0-0.5); EOS % 3.4 % (0.0-3.0); HEMOGLOBIN 15.6 g/dl (12.0-15.5); LYMPH # 2.2 10^3/uL (1.5-5.0); LYMPH % 23.6 % (24.0-44.0); MEAN CORPUSCULAR HEMOGLOBIN 27.7 pg (27.0-33.0); MEAN CORPUSCULAR HGB CONC 30.6 g/dl (32.0-36.5); MEAN CORPUSCULAR VOLUME 90.4 fl (80.0-96.0); MONO # 0.9 10^3/uL (0.0-0.8); MONO % 9.6 % (0.0-5.0); NEUTROPHILS # 5.7 10^3/uL (1.5-8.5); NEUTROPHILS % 62.4 % (36.0-66.0); PLATELET COUNT, AUTOMATED 316 10^3/uL (150-450); RED BLOOD COUNT 5.64 10^6/uL (4.00-5.40); WHITE BLOOD COUNT 9.1 10^3/uL (4.0-10.0)
[2020-01-10 09:06] LABS: ALBUMIN 3.4 GM/DL (3.2-5.2); CALCIUM LEVEL 11.3 MG/DL (8.8-10.2); CREATININE FOR GFR 1.19 MG/DL (0.55-1.30); GLOMERULAR FILTRATION RATE 45.8 (>32); PHOSPHORUS LEVEL 3.1 MG/DL (2.5-4.9); POTASSIUM SERUM 4.2 MEQ/L (3.5-5.1)
[2020-01-10 12:13] LABS: PTH INTACT 161.6 PG/ML (18.5-88.0)
== END ==
LOC: SKLAB2 07:00
PROVIDERS: ATTEND Family Medicine
DX: E03.9 Hypothyroidism, unspecified (principal)

== ENCOUNTER → 2020-02-07 | Outpatient (REF) | payer MEDICARE, MEDICAID ==
[~2020-02-07] MED LIST changes: +AMLO1TAB24 PO; -AMLO5TAB6 PO; +PANT40TA29 PO; -PANT40TA3 PO
[2020-05-05 07:54] LABS: CALCIUM LEVEL 11.1 MG/DL (8.8-10.2); CREATININE FOR GFR 1.15 MG/DL (0.55-1.30); GLOMERULAR FILTRATION RATE 47.6 (>32); POTASSIUM SERUM 4.5 MEQ/L (3.5-5.1)
== END ==
LOC: SKLAB2 11:35
DX: E11.9 Type 2 diabetes mellitus without complications (principal)

== ENCOUNTER → 2020-03-13 | Outpatient (REF) | payer MEDICARE, MEDICAID | LOC: SKLAB2 07:00 | DX: E11.9 Type 2 diabetes mellitus without complications (principal) ==

== ENCOUNTER → 2020-04-30 | Outpatient (CLI) | payer MEDICARE, MEDICAID ==
--- NOTE | 2020-04-30 13:44 | REP ---
INDICATION: LEFT ANKLE PAIN COMPARISON: 01/26/2019. TECHNIQUE: Four views obtained. FINDINGS: I see no acute fracture or dislocation. There is diffuse osteopenia. The ankle mortise is anatomic. A metallic screw is seen in the medial malleolus. A metallic plate and multiple screws are seen in the distal fibula. There is mild inferior calcaneal spurring. IMPRESSION: Osteopenia. No acute fracture or dislocation. Metallic internal fixation. <Electronically signed by Tyler Pizarro > 04/30/20 [id number]
== END ==
LOC: M RAD 11:25
PROVIDERS: ATTEND Nurse Practitioner Family
DX: M25.572 Pain in left ankle and joints of left foot (principal)

== ENCOUNTER → 2020-04-30 | Outpatient (REF) | payer MEDICARE, MEDICAID | LOC: SKLAB2 11:06 | PROVIDERS: ATTEND Nurse Practitioner Family | DX: M25.572 Pain in left ankle and joints of left foot (principal) ==

== ENCOUNTER → 2020-05-08 | Outpatient (REF) | payer MEDICARE, MEDICAID ==
[2020-05-08 10:05] LABS: CALCIUM LEVEL 10.4 MG/DL (8.8-10.2); CREATININE FOR GFR 1.27 MG/DL (0.55-1.30); GLOMERULAR FILTRATION RATE 42.5 (>32); POTASSIUM SERUM 4.4 MEQ/L (3.5-5.1)
== END ==
LOC: SKLAB2 08:30
DX: I10 Essential (primary) hypertension (principal)

== ENCOUNTER → 2020-05-16 | Outpatient (REF) | payer MEDICARE, MEDICAID | LOC: SKLAB2 05-15 11:06 → EDSTATUS 06-06 16:12 | DX: Z20.818 Contact with and (suspected) exposure to other bacterial communicable diseases (principal) ==

== ENCOUNTER → 2020-05-30 | Outpatient (REF) | payer MEDICARE, MEDICAID | LOC: SKLAB2 08:00 | DX: Z20.828 Contact with and (suspected) exposure to other viral communicable diseases (principal) ==

== ENCOUNTER → 2020-06-06 | Outpatient (REF) | payer MEDICARE, MEDICAID | LOC: SKLAB2 07:30 | DX: Z20.828 Contact with and (suspected) exposure to other viral communicable diseases (principal) ==

== ENCOUNTER → 2020-06-12 | Outpatient (REF) | payer MEDICARE, MEDICAID ==
[2020-06-12 11:16] LABS: HEMOGLOBIN A1c 6.7 %
== END ==
LOC: SKLAB2 08:00
DX: E11.9 Type 2 diabetes mellitus without complications (principal)

== ENCOUNTER → 2020-06-13 | Outpatient (REF) | payer MEDICARE, MEDICAID | LOC: SKLAB2 11:30 | DX: Z20.828 Contact with and (suspected) exposure to other viral communicable diseases (principal) ==

== ENCOUNTER → 2020-06-20 | Outpatient (REF) | payer MEDICARE, MEDICAID | LOC: SKLAB2 07:52 | DX: Z20.828 Contact with and (suspected) exposure to other viral communicable diseases (principal) ==

== ENCOUNTER → 2020-06-27 | Outpatient (REF) | payer MEDICARE, MEDICAID | LOC: SKLAB2 10:23 | DX: Z20.828 Contact with and (suspected) exposure to other viral communicable diseases (principal) ==

== ENCOUNTER → 2020-07-04 | Outpatient (REF) | payer MEDICARE, MEDICAID | LOC: SKLAB2 07:00 | PROVIDERS: ATTEND Internal Medicine | DX: Z11.52 Encounter for screening for COVID-19 (principal) ==

== ENCOUNTER → 2020-07-11 | Outpatient (REF) | payer MEDICARE, MEDICAID | LOC: SKLAB2 07:00 | PROVIDERS: ATTEND Internal Medicine | DX: Z20.822 Contact with and (suspected) exposure to COVID-19 (principal) ==

== ENCOUNTER → 2020-07-18 | Outpatient (REF) | payer MEDICARE, MEDICAID ==
[~2020-07-18] MED LIST changes: -LISI-538 PO; +LISI20TA33 PO
== END ==
LOC: SKLAB2 07:00
PROVIDERS: ATTEND Internal Medicine
DX: Z20.822 Contact with and (suspected) exposure to COVID-19 (principal)

== ENCOUNTER → 2020-07-25 | Outpatient (REF) | payer MEDICARE, MEDICAID | LOC: SKLAB2 14:07 | PROVIDERS: ATTEND Internal Medicine | DX: Z20.822 Contact with and (suspected) exposure to COVID-19 (principal) ==

== ENCOUNTER → 2020-08-01 | Outpatient (REF) | payer MEDICARE, MEDICAID | LOC: SKLAB2 10:53 | PROVIDERS: ATTEND Internal Medicine | DX: Z11.52 Encounter for screening for COVID-19 (principal) ==

== ENCOUNTER → 2020-08-07 | Outpatient (REF) | payer MEDICARE, MEDICAID ==
[2020-08-07 10:15] LABS: CALCIUM LEVEL 10.8 MG/DL (8.8-10.2); CREATININE FOR GFR 1.2 MG/DL (0.55-1.30); GLOMERULAR FILTRATION RATE 45.3 (>32); POTASSIUM SERUM 4.5 MEQ/L (3.5-5.1)
== END ==
LOC: SKLAB7 10:45
DX: I10 Essential (primary) hypertension (principal)

== ENCOUNTER → 2020-08-08 | Outpatient (REF) | payer MEDICARE, MEDICAID | LOC: SKLAB2 10:45 | PROVIDERS: ATTEND Internal Medicine | DX: Z20.822 Contact with and (suspected) exposure to COVID-19 (principal) ==

== ENCOUNTER → 2020-08-15 | Outpatient (REF) | payer MEDICARE, MEDICAID | LOC: SKLAB2 07:42 | PROVIDERS: ATTEND Internal Medicine | DX: Z11.52 Encounter for screening for COVID-19 (principal) ==

== ENCOUNTER → 2020-08-22 | Outpatient (REF) | payer MEDICARE, MEDICAID | LOC: SKLAB2 09:07 | PROVIDERS: ATTEND Internal Medicine | DX: Z20.822 Contact with and (suspected) exposure to COVID-19 (principal) ==

== ENCOUNTER → 2020-09-05 | Outpatient (REF) | payer MEDICARE, MEDICAID | LOC: SKLAB2 08:00 | PROVIDERS: ATTEND Internal Medicine | DX: Z11.52 Encounter for screening for COVID-19 (principal) ==

== ENCOUNTER → 2020-09-12 | Outpatient (REF) | payer MEDICARE, MEDICAID | LOC: SKLAB2 13:26 | PROVIDERS: ATTEND Internal Medicine | DX: Z20.822 Contact with and (suspected) exposure to COVID-19 (principal) ==

== ENCOUNTER → 2020-09-18 | Outpatient (REF) | payer MEDICARE, MEDICAID ==
[2020-09-18 08:48] LABS: HEMOGLOBIN A1c 7.2 %
== END ==
LOC: SKLAB2 12:37
DX: E11.9 Type 2 diabetes mellitus without complications (principal)

== ENCOUNTER → 2020-09-28 | Outpatient (REF) | payer MEDICARE, MEDICAID | LOC: SKLAB2 12:37 | PROVIDERS: ATTEND Internal Medicine | DX: Z20.822 Contact with and (suspected) exposure to COVID-19 (principal) ==

== ENCOUNTER → 2020-10-18 | Outpatient (REF) | payer MEDICARE, MEDICAID ==
[2020-10-18 10:28] LABS: BASO # 0.1 10^3/uL (0.0-0.2); BASO % 0.5 % (0.0-1.0); EOS # 0.3 10^3/uL (0.0-0.5); HEMATOCRIT 48.7 % (36.0-47.0); HEMOGLOBIN 14.9 g/dl (12.0-15.5); LYMPH # 1.6 10^3/uL (1.5-5.0); LYMPH % 16.9 % (24.0-44.0); MEAN CORPUSCULAR HEMOGLOBIN 26.3 pg (27.0-33.0); MEAN CORPUSCULAR HGB CONC 30.6 g/dl (32.0-36.5); MONO # 0.9 10^3/uL (0.0-0.8); MONO % 9.3 % (2.0-8.0); NEUTROPHILS # 6.7 10^3/uL (1.5-8.5); NEUTROPHILS % 70.1 % (36.0-66.0); PLATELET COUNT, AUTOMATED 270 10^3/uL (150-450); RED BLOOD COUNT 5.66 10^6/uL (4.00-5.40); WHITE BLOOD COUNT 9.6 10^3/uL (4.0-10.0)
[2020-10-18 11:10] LABS: CALCIUM LEVEL 10.8 MG/DL (8.8-10.2); CREATININE FOR GFR 1.03 MG/DL (0.55-1.30); GLOMERULAR FILTRATION RATE 54.1 (>32); PHOSPHORUS LEVEL 3.2 MG/DL (2.5-4.9); POTASSIUM SERUM 4.5 MEQ/L (3.5-5.1)
[2020-10-18 12:11] LABS: PTH INTACT 155.9 PG/ML (18.5-88.0)
== END ==
LOC: SKLAB2 10-17 08:00
DX: E83.52 Hypercalcemia (principal)

== ENCOUNTER → 2020-11-06 | Outpatient (REF) | payer MEDICARE, MEDICAID ==
[2020-11-06 09:21] LABS: CALCIUM LEVEL 10.7 MG/DL (8.8-10.2); CREATININE FOR GFR 1.09 MG/DL (0.55-1.30); GLOMERULAR FILTRATION RATE 50.7 (>32); POTASSIUM SERUM 4.2 MEQ/L (3.5-5.1)
[2020-11-06 09:54] LABS: HEMOGLOBIN A1c 7.5 %
== END ==
LOC: SKLAB2 11:40
DX: I10 Essential (primary) hypertension (principal); E11.9 Type 2 diabetes mellitus without complications

== ENCOUNTER → 2021-02-05 | Outpatient (REF) | payer MEDICARE, MEDICAID ==
[~2021-02-05] MED LIST changes: -HYDR1CRE9 TOP; +SFHHYD1CR TOP
[2021-02-05 09:05] LABS: CALCIUM LEVEL 10.7 MG/DL (8.8-10.2); CREATININE FOR GFR 1.02 MG/DL (0.55-1.30); GLOMERULAR FILTRATION RATE 54.6 (>32); POTASSIUM SERUM 4.6 MEQ/L (3.5-5.1)
[2021-02-05 09:10] LABS: HEMOGLOBIN A1c 7.2 %
== END ==
LOC: SKLAB2 07:00
DX: E11.9 Type 2 diabetes mellitus without complications (principal)

== ENCOUNTER → 2021-04-18 | Outpatient (REF) | payer MEDICARE, MEDICAID | LOC: SKLAB8 09:00 | PROVIDERS: ATTEND Neuromusculoskeletal Medicine & OMM | DX: Z20.822 Contact with and (suspected) exposure to COVID-19 (principal) ==

== ENCOUNTER → 2021-04-22 | Outpatient (REF) | payer MEDICARE, MEDICAID | LOC: SKLAB8 07:31 | PROVIDERS: ATTEND Neuromusculoskeletal Medicine & OMM | DX: Z20.822 Contact with and (suspected) exposure to COVID-19 (principal) ==

== ENCOUNTER → 2021-04-25 | Outpatient (REF) | payer MEDICARE, MEDICAID | LOC: SKLAB8 05:46 | PROVIDERS: ATTEND Neuromusculoskeletal Medicine & OMM | DX: Z20.822 Contact with and (suspected) exposure to COVID-19 (principal) ==

== ENCOUNTER → 2021-04-29 | Outpatient (REF) | payer MEDICARE, MEDICAID | LOC: SKLAB8 06:25 | PROVIDERS: ATTEND Neuromusculoskeletal Medicine & OMM | DX: Z20.822 Contact with and (suspected) exposure to COVID-19 (principal) ==

== ENCOUNTER → 2021-05-02 | Outpatient (REF) | payer MEDICARE, MEDICAID | LOC: SKLAB8 06:38 | PROVIDERS: ATTEND Neuromusculoskeletal Medicine & OMM | DX: Z20.822 Contact with and (suspected) exposure to COVID-19 (principal) ==

== ENCOUNTER → 2021-05-08 | Outpatient (REF) | payer MEDICARE, MEDICAID | LOC: SKLAB8 06:27 | PROVIDERS: ATTEND Neuromusculoskeletal Medicine & OMM | DX: Z20.822 Contact with and (suspected) exposure to COVID-19 (principal) ==

== ENCOUNTER → 2021-05-15 | Outpatient (REF) | payer MEDICARE, MEDICAID | LOC: SKLAB8 08:32 | PROVIDERS: ATTEND Neuromusculoskeletal Medicine & OMM | DX: Z20.822 Contact with and (suspected) exposure to COVID-19 (principal) ==

== ENCOUNTER → 2021-06-05 | Outpatient (REF) | payer MEDICARE, MEDICAID | LOC: SKLAB8 08:35 | PROVIDERS: ATTEND Neuromusculoskeletal Medicine & OMM | DX: Z20.822 Contact with and (suspected) exposure to COVID-19 (principal) ==

== ENCOUNTER → 2021-06-12 | Outpatient (REF) | payer MEDICARE, MEDICAID | LOC: SKLAB8 14:25 | PROVIDERS: ATTEND Neuromusculoskeletal Medicine & OMM | DX: Z20.822 Contact with and (suspected) exposure to COVID-19 (principal) ==

== ENCOUNTER → 2021-06-19 | Outpatient (REF) | payer MEDICARE, MEDICAID | LOC: SKLAB8 14:46 | PROVIDERS: ATTEND Neuromusculoskeletal Medicine & OMM | DX: Z20.822 Contact with and (suspected) exposure to COVID-19 (principal) ==

== ENCOUNTER → 2021-06-26 | Outpatient (REF) | payer MEDICARE, MEDICAID | LOC: SKLAB8 14:27 | PROVIDERS: ATTEND Internal Medicine | DX: Z20.822 Contact with and (suspected) exposure to COVID-19 (principal) ==

== ENCOUNTER → 2021-07-03 | Outpatient (REF) | payer MEDICARE, MEDICAID | LOC: SKLAB8 07:00 | PROVIDERS: ATTEND Neuromusculoskeletal Medicine & OMM | DX: Z20.822 Contact with and (suspected) exposure to COVID-19 (principal) ==

== ENCOUNTER → 2021-07-03 | Outpatient (REF) | payer MEDICARE, MEDICAID | LOC: SKLAB8 11:27 | PROVIDERS: ATTEND Neuromusculoskeletal Medicine & OMM | DX: Z53.9 Procedure and treatment not carried out, unspecified reason (principal) ==

== ENCOUNTER → 2021-07-05 | Outpatient (REF) | payer MEDICARE, MEDICAID ==
[2021-07-05 09:24] LABS: HEMATOCRIT 46.3 % (36.0-47.0); HEMOGLOBIN 14.1 g/dl (12.0-15.5); MEAN CORPUSCULAR HEMOGLOBIN 24.7 pg (27.0-33.0); MEAN CORPUSCULAR HGB CONC 30.5 g/dl (32.0-36.5); MEAN CORPUSCULAR VOLUME 81.2 fl (80.0-96.0); PLATELET COUNT, AUTOMATED 323 10^3/uL (150-450)
[2021-07-05 09:44] LABS: CALCIUM LEVEL 10.5 MG/DL (8.8-10.2); CREATININE FOR GFR 1.11 MG/DL (0.55-1.30); GLOMERULAR FILTRATION RATE 49.5 (>32); POTASSIUM SERUM 4.6 MEQ/L (3.5-5.1)
== END ==
LOC: SKLAB8 07:00
PROVIDERS: ATTEND Neuromusculoskeletal Medicine & OMM
DX: U07.1 COVID-19 (principal); Z79.899 Other long term (current) drug therapy

== ENCOUNTER → 2021-07-05 | Outpatient (REF) | payer MEDICARE, MEDICAID | LOC: SKLAB8 13:36 | PROVIDERS: ATTEND Neuromusculoskeletal Medicine & OMM | DX: U07.1 COVID-19 (principal) ==

== ENCOUNTER → 2021-07-06 | Outpatient (REF) | payer MEDICARE, MEDICAID ==
[2021-07-06 10:07] LABS: HEMATOCRIT 45.3 % (36.0-47.0); HEMOGLOBIN 13.7 g/dl (12.0-15.5); MEAN CORPUSCULAR HEMOGLOBIN 24.8 pg (27.0-33.0); MEAN CORPUSCULAR HGB CONC 30.2 g/dl (32.0-36.5); MEAN CORPUSCULAR VOLUME 82.1 fl (80.0-96.0); PLATELET COUNT, AUTOMATED 323 10^3/uL (150-450); RED BLOOD COUNT 5.52 10^6/uL (4.00-5.40); WHITE BLOOD COUNT 8.3 10^3/uL (4.0-10.0)
[2021-07-06 10:32] LABS: ALBUMIN 2.9 GM/DL (3.2-5.2); BILIRUBIN,TOTAL 0.3 MG/DL (0.2-1.0); CALCIUM LEVEL 10.4 MG/DL (8.8-10.2); CREATININE FOR GFR 1.27 MG/DL (0.55-1.30); GLOMERULAR FILTRATION RATE 42.4 (>32); POTASSIUM SERUM 4.5 MEQ/L (3.5-5.1); TOTAL PROTEIN 6.3 GM/DL (6.4-8.2)
== END ==
LOC: SKLAB8 07:00
PROVIDERS: ATTEND Neuromusculoskeletal Medicine & OMM
DX: U07.1 COVID-19 (principal); Z79.899 Other long term (current) drug therapy

== ENCOUNTER → 2021-07-08 | Outpatient (REF) | payer MEDICARE, MEDICAID | LOC: SKLAB8 15:20 | PROVIDERS: ATTEND Neuromusculoskeletal Medicine & OMM | DX: U07.1 COVID-19 (principal); I51.7 Cardiomegaly ==

== ENCOUNTER → 2021-07-11 | Outpatient (REF) | payer MEDICARE, MEDICAID ==
[2021-07-11 11:18] LABS: HEMATOCRIT 46.4 % (36.0-47.0); HEMOGLOBIN 13.8 g/dl (12.0-15.5); MEAN CORPUSCULAR HEMOGLOBIN 24.5 pg (27.0-33.0); MEAN CORPUSCULAR HGB CONC 29.7 g/dl (32.0-36.5); MEAN CORPUSCULAR VOLUME 82.4 fl (80.0-96.0); PLATELET COUNT, AUTOMATED 359 10^3/uL (150-450); RED BLOOD COUNT 5.63 10^6/uL (4.00-5.40); WHITE BLOOD COUNT 10.2 10^3/uL (4.0-10.0)
[2021-07-11 11:33] LABS: CALCIUM LEVEL 10.9 MG/DL (8.8-10.2); CREATININE FOR GFR 1.13 MG/DL (0.55-1.30); GLOMERULAR FILTRATION RATE 48.5 (>32); POTASSIUM SERUM 4.4 MEQ/L (3.5-5.1)
== END ==
LOC: SKLAB8 07:00
PROVIDERS: ATTEND Neuromusculoskeletal Medicine & OMM
DX: U07.1 COVID-19 (principal); Z79.899 Other long term (current) drug therapy

== ENCOUNTER → 2021-08-15 | Outpatient (REF) | payer MEDICARE, MEDICAID ==
[2021-08-15 14:16] LABS: CALCIUM LEVEL 11.1 MG/DL (8.8-10.2); CREATININE FOR GFR 1.12 MG/DL (0.55-1.30); POTASSIUM SERUM 4.2 MEQ/L (3.5-5.1)
[2021-08-15 18:53] LABS: HEMOGLOBIN A1c 6.7 %
== END ==
LOC: SKLAB8 07:00
PROVIDERS: ATTEND Neuromusculoskeletal Medicine & OMM
DX: E11.9 Type 2 diabetes mellitus without complications (principal)

== ENCOUNTER → 2021-11-14 | Outpatient (REF) | payer MEDICARE, MEDICAID ==
[2021-11-14 11:39] LABS: HEMOGLOBIN A1c 6.2 %
[2021-11-14 12:13] LABS: CALCIUM LEVEL 11.2 MG/DL (8.8-10.2); CREATININE FOR GFR 1.06 MG/DL (0.55-1.30); GLOMERULAR FILTRATION RATE 52.2 (>32); POTASSIUM SERUM 4.4 MEQ/L (3.5-5.1)
== END ==
LOC: SKLAB8 07:18
PROVIDERS: ATTEND Neuromusculoskeletal Medicine & OMM
DX: E11.9 Type 2 diabetes mellitus without complications (principal)

== ENCOUNTER 2022-01-29 04:51 | Emergency (ER) | payer MEDICARE, MEDICAID ==
[~2022-01-29 04:51] MED LIST changes: +SIMV-253 PO; -ZOCO20TA PO
[2022-01-29] MEDS ORDERED: DERMABOND TOPICAL SKIN ADHESIVE TOP ONE (05:55)
[2022-01-29] MEDS ORDERED: BOOSTRIX/ADACEL VACCINE (DIPHTH/PERTUSS/ACELL/TETANUS) 0.5ML SYR IM ONE (05:55)
[2022-01-29 07:33] VITALS: BP 158/91
== END 2022-01-29 08:44 | disposition home or self-care (01) ==
LOC: M ED 04:51 → EDBD 04:51 → M ED 08:44
DX: S01.81XA Laceration without foreign body of other part of head, initial encounter (principal); W06.XXXA Fall from bed, initial encounter; Y92.122 Bedroom in nursing home as the place of occurrence of the external cause; I50.9 Heart failure, unspecified; N18.9 Chronic kidney disease, unspecified; F03.90 Unspecified dementia, unspecified severity, without behavioral disturbance, psychotic disturbance, mood disturbance, and anxiety; I25.10 Atherosclerotic heart disease of native coronary artery without angina pectoris; Z86.73 Personal history of transient ischemic attack (TIA), and cerebral infarction without residual deficits; Z79.899 Other long term (current) drug therapy; Z79.82 Long term (current) use of aspirin; Z88.0 Allergy status to penicillin; Z88.1 Allergy status to other antibiotic agents

== ENCOUNTER → 2022-02-13 | Outpatient (REF) | payer MEDICARE, MEDICAID ==
[2022-02-13 09:15] LABS: CALCIUM LEVEL 10.6 MG/DL (8.8-10.2); CREATININE FOR GFR 1.19 MG/DL (0.55-1.30); GLOMERULAR FILTRATION RATE 45.6 (>32); POTASSIUM SERUM 4.4 MEQ/L (3.5-5.1)
[2022-02-13 10:19] LABS: HEMOGLOBIN A1c 6.5 %
== END ==
LOC: SKLAB8 07:00
PROVIDERS: ATTEND Neuromusculoskeletal Medicine & OMM
DX: E11.9 Type 2 diabetes mellitus without complications (principal)

== ENCOUNTER → 2022-05-02 | Outpatient (REF) | payer MEDICARE, MEDICAID | LOC: SKLAB8 07:00 | PROVIDERS: ATTEND Internal Medicine | DX: M25.551 Pain in right hip (principal) ==

== ENCOUNTER → 2022-05-02 | Outpatient (CLI) | payer MEDICARE, MEDICAID | LOC: M RAD 11:12 | PROVIDERS: ATTEND Neuromusculoskeletal Medicine & OMM | DX: M25.562 Pain in left knee (principal) ==

== ENCOUNTER → 2022-05-15 | Outpatient (REF) | payer MEDICARE, MEDICAID ==
[2022-05-15 10:42] LABS: CALCIUM LEVEL 11.5 MG/DL (8.3-10.6); CREATININE FOR GFR 1.07 MG/DL (0.55-1.30); GLOMERULAR FILTRATION RATE 51.5 (>32); POTASSIUM SERUM 4.4 MMOL/L (3.5-5.1)
[2022-05-15 12:38] LABS: HEMOGLOBIN A1c 5.5 % (4.0-6.0)
== END ==
LOC: SKLAB8 07:00
PROVIDERS: ATTEND Nurse Practitioner Family
DX: E11.9 Type 2 diabetes mellitus without complications (principal)

== ENCOUNTER → 2022-08-14 | Outpatient (REF) | payer MEDICARE, MEDICAID ==
[2022-08-14 10:44] LABS: HEMOGLOBIN A1c 5.3 % (4.0-6.0)
[2022-08-14 10:54] LABS: CALCIUM LEVEL 10.7 MG/DL (8.3-10.6); CREATININE FOR GFR 1.15 MG/DL (0.55-1.30); GLOMERULAR FILTRATION RATE 47.4 (>32); POTASSIUM SERUM 4.4 MMOL/L (3.5-5.1)
== END ==
LOC: SKLAB8 07:00
PROVIDERS: ATTEND Internal Medicine
DX: E11.9 Type 2 diabetes mellitus without complications (principal)

== ENCOUNTER 2022-08-30 11:06 | Emergency (ER) | payer MEDICARE, MEDICAID ==
[2022-08-30 15:22] VITALS: BP 139/83
== END 2022-08-30 15:57 | disposition home or self-care (01) ==
LOC: M ED 11:06 → EDBD 11:06 → M ED 15:57
DX: M25.552 Pain in left hip (principal); M25.511 Pain in right shoulder; S40.011A Contusion of right shoulder, initial encounter; W01.0XXA Fall on same level from slipping, tripping and stumbling without subsequent striking against object, initial encounter; Y92.129 Unspecified place in nursing home as the place of occurrence of the external cause; M85.80 Other specified disorders of bone density and structure, unspecified site; M81.0 Age-related osteoporosis without current pathological fracture; M43.12 Spondylolisthesis, cervical region; E11.9 Type 2 diabetes mellitus without complications; I50.9 Heart failure, unspecified; I25.9 Chronic ischemic heart disease, unspecified; E78.5 Hyperlipidemia, unspecified; F03.90 Unspecified dementia, unspecified severity, without behavioral disturbance, psychotic disturbance, mood disturbance, and anxiety; Z85.51 Personal history of malignant neoplasm of bladder; Z88.0 Allergy status to penicillin; Z79.51 Long term (current) use of inhaled steroids; Z79.899 Other long term (current) drug therapy; Z79.82 Long term (current) use of aspirin

== ENCOUNTER → 2022-08-30 | Outpatient (REF) | payer MEDICARE, MEDICAID | LOC: SKLAB8 18:57 → M RAD 18:57 | PROVIDERS: ATTEND Internal Medicine | DX: S40.011A Contusion of right shoulder, initial encounter (principal); M81.0 Age-related osteoporosis without current pathological fracture ==